=== PATIENT | male | born 1970 | race Caucasian/White ===

== ENCOUNTER 2022-12-22 20:31 | Emergency (ER) | payer BC ==
[~2022-12-22] VITALS: Ht 180.3 cm; Wt 97.5 kg
[2022-12-22] MEDS ORDERED: diphenhydrAMINE 50 MG/ML INJ (BENADRYL) IVP ONE (20:45)
[2022-12-22] MEDS ORDERED: ALPR0.25 PO (20:47)
[2022-12-22] MEDS ORDERED: METO-333 PO (20:47)
[2022-12-22] MEDS ORDERED: GABA-486 PO (20:47)
[2022-12-22] MEDS ORDERED: OXYC10TA55 PO (20:47)
--- NOTE | 2022-12-22 20:47 | Diagnostic Imaging Report ---
PROCEDURE: CT head wo r/o stroke. TECHNIQUE: Multiple contiguous axial images were obtained through the brain without the use of intravenous contrast. Auto Exposure Controls were utilized during the CT exam to meet ALARA standards for radiation dose reduction. INDICATION: Convulsion with lower extremity weakness. CT HEAD: CT images of the head were obtained. Ventricles and sulci are within normal limits for size. There is no intracranial hemorrhage identified. There is no abnormal mass effect or shift of midline structures. Mucous retention cyst or polyp is present in the right maxillary sinus. IMPRESSION: Unremarkable CT of the head. Dictated by: Dictated on workstation # [id number]
--- NOTE | 2022-12-22 20:50 | ED Neurological Problem ---
General Chief Complaint: Neuro-Stroke Like Symptoms Stated Complaint: STROKE History of Present Illness Date Seen by Provider: Dec 22, 2022 Time Seen by Provider: 20:40 Initial Comments 52-year-old male brought in by EMS. Patient was brought in for what was called as "strokelike symptoms. Patient is a TECHNICAL SALES DIRECTOR and [place] reports he had left- sided deficits and was left-sided deficit when EMS arrived but almost immediately resolved with no symptoms. Patient is now having coarse jerking more like a dystonic reaction. Patient reports he has chronic head neck pain and recently had his Narcan increased. Patient also reports he was at his brother's due to the pain he took a "edible" upon arrival patient has no strokelike symptoms. He answers all questions appropriately. Allergies and Home Medications Allergies Coded Allergies: levofloxacin (Verified Allergy, Mild, 12/22/22) Patient Home Medication List Home Medication List Reviewed: Yes Alprazolam (Xanax) 0.25 Mg Tablet, Unknown Dose PO, (Reported) Entered as Reported by: ALYSSA RUTH on 12/22/222046 Last Action: New Order Gabapentin (Gabapentin) 100 Mg Capsule, Unknown Dose PO Q8H, (Reported) Entered as Reported by: ALYSSA RUTH on 12/22/222046 Last Action: New Order Metoprolol Tartrate (Metoprolol Tartrate) 25 Mg Tablet, Unknown Dose PO BID, (Reported) Entered as Reported by: ALYSSA RUTH on 12/22/222046 Last Action: New Order Oxycodone HCl (Oxycontin) 10 Mg Tab.er.12h, 10 MG PO, (Reported) Entered as Reported by: ALYSSA RUTH on 12/22/222046 Last Action: New Order Review of Systems Review of Systems Constitutional: see HPI Eyes: No Symptoms Reported Ears, Nose, Mouth, Throat: no symptoms reported Respiratory: no symptoms reported Gastrointestinal: no symptoms reported Genitourinary: no symptoms reported Musculoskeletal: see HPI Skin: no symptoms reported Psychiatric/Neurological: No Symptoms Reported Past Smjohxd-Doegxz-Bcifaw Hx Patient Social History Tobacco Use?: Yes Substance use?: Yes Substance type: Marijuana Alcohol Use?: No Pt feels they are or have been: No Immunizations Up To Date First/Initial COVID19 Vaccinat: na Past Medical History Surgery/Hospitalization HX: anxiety, depression, headache, chronic pain, htn Physical Exam Vital Signs Vital Signs - First Documented 12/22/22 20:31 Temp 36.7 Pulse 47 Resp 16 B/P (MAP) 108/70 (83) Pulse Ox 95 O2 Delivery Room Air Capillary Refill : Less Than 3 Seconds Height, Weight, BMI Height: '" Weight: lbs. oz. kg; 29.00 BMI Method: General Appearance: other (Coarse jerky movements.) HEENT: PERRL/EOMI Respiratory: lungs clear, normal breath sounds Cardiovascular: normal peripheral pulses, regular rate, rhythm Gastrointestinal: non tender, soft Neurologic/Psychiatric: alert, oriented x 3 Motor/Sensory: other (coarse movements bilateral, dystonic type facial reaction ) Skin: normal color, warm/dry Progress/Results/Core Measures Results/Orders Lab Results Laboratory Tests Test 12/22/22 20:50 12/22/22 21:04 12/22/22 21:51 Range/Units White Blood Count 7.3 4.3-11.0 10^3/uL Red Blood Count 4.17 L 4.30-5.52 10^6/uL Hemoglobin 14.5 13.3-17.7 g/dL Hematocrit 41 40-54 % Mean Corpuscular Volume 99 80-99 fL Mean Corpuscular Hemoglobin 35 H 25-34 pg Mean Corpuscular Hemoglobin Concent 35 32-36 g/dL Red Cell Distribution Width 12.3 10.0-14.5 % Platelet Count 147 130-400 10^3/uL Mean Platelet Volume 10.8 9.0-12.2 fL Immature Granulocyte % (Auto) 0 % Neutrophils (%) (Auto) 71 42-75 % Lymphocytes (%) (Auto) 23 12-44 % Monocytes (%) (Auto) 5 0-12 % Eosinophils (%) (Auto) 1 0-10 % Basophils (%) (Auto) 1 0-10 % Neutrophils # (Auto) 5.1 1.8-7.8 10^3/uL Lymphocytes # (Auto) 1.7 1.0-4.0 10^3/uL Monocytes # (Auto) 0.3 0.0-1.0 10^3/uL Eosinophils # (Auto) 0.1 0.0-0.3 10^3/uL Basophils # (Auto) 0.1 0.0-0.1 10^3/uL Immature Granulocyte # (Auto) 0.0 0.0-0.1 10^3/uL Percent Immature Platelet Fraction 6.3 0.0-7.6 % Sodium Level 138 135-145 MMOL/L Potassium Level 3.5 L 3.6-5.0 MMOL/L Chloride Level 106 98-107 MMOL/L Carbon Dioxide Level 20 L 21-32 MMOL/L Anion Gap 12 5-14 MMOL/L Blood Urea Nitrogen 20 H 7-18 MG/DL Creatinine 0.87 0.60-1.30 MG/DL Estimat Glomerular Filtration Rate 104 BUN/Creatinine Ratio 23 Glucose Level 175 H 70-105 MG/DL Calcium Level 9.1 8.5-10.1 MG/DL Corrected Calcium 9.0 8.5-10.1 MG/DL Magnesium Level 2.1 1.6-2.4 MG/DL Total Bilirubin 0.6 0.1-1.0 MG/DL Aspartate Amino Transf (AST/SGOT) 31 5-34 U/L Alanine Aminotransferase (ALT/SGPT) 18 0-55 U/L Alkaline Phosphatase 37 L 40-136 U/L Troponin I < 0.028 <0.028 NG/ML Total Protein 6.6 6.4-8.2 GM/DL Albumin 4.1 3.2-4.5 GM/DL Serum Alcohol < 10 <10 MG/DL Smear Scan YES Influenza Type A (RT-PCR) Not Detected Not Detecte Influenza Type B (RT-PCR) Not Detected Not Detecte SARS-CoV-2 RNA (RT-PCR) Not Detected Not Detecte Urine Color YELLOW Urine Clarity CLEAR Urine pH 6.0 5-9 Urine Specific [place] >=1.030 1.016-1.022 Urine Protein NEGATIVE NEGATIVE Urine Glucose (UA) NEGATIVE NEGATIVE Urine Ketones TRACE H NEGATIVE Urine Nitrite NEGATIVE NEGATIVE Urine Bilirubin NEGATIVE NEGATIVE Urine Urobilinogen 0.2 < = 1.0 MG/DL Urine Leukocyte Esterase NEGATIVE NEGATIVE Urine RBC (Auto) NEGATIVE NEGATIVE Urine RBC NONE /HPF Urine WBC NONE /HPF Urine Squamous Epithelial Cells NONE /HPF Urine Crystals NONE /LPF Urine Bacteria TRACE /HPF Urine Casts NONE /LPF Urine Mucus SMALL H /LPF Urine Culture Indicated NO Urine Opiates Screen NEGATIVE NEGATIVE Urine Oxycodone Screen POSITIVE H NEGATIVE Urine Methadone Screen NEGATIVE NEGATIVE Urine Propoxyphene Screen NEGATIVE NEGATIVE Urine Barbiturates Screen NEGATIVE NEGATIVE Ur Tricyclic Antidepressants Screen NEGATIVE NEGATIVE Urine Phencyclidine Screen NEGATIVE NEGATIVE Urine Amphetamines Screen NEGATIVE NEGATIVE Urine Methamphetamines Screen NEGATIVE NEGATIVE Urine Benzodiazepines Screen POSITIVE H NEGATIVE Urine Cocaine Screen NEGATIVE NEGATIVE Urine Cannabinoids Screen POSITIVE H NEGATIVE My Orders Orders - SHEN SILVA L DO Ct Head Wo-R/O Stroke (12/22/22 20:32) Alcohol (12/22/22 20:33) Cbc With Automated Diff (12/22/22 20:33) Comprehensive Metabolic Panel (12/22/22 20:33) Drug Screen Stat (Urine) (12/22/22 20:33) Magnesium (12/22/22 20:33) Troponin I [place] (12/22/22 20:33) Ua Culture If Indicated (12/22/22 20:33) Influenza A And B By Pcr (12/22/22 20:33) Covid 19 Inhouse Test (12/22/22 20:33) Diphenhydramine Injection (Benadryl Inje (12/22/22 20:45) Ct Angio Head/Neck (12/22/22 21:40) Iohexol Injection (Omnipaque 350 Mg/Ml 1 (12/22/22 21:45) Received Contrast (Hold Metformin- Contr (12/22/22 21:45) Ns (Ivpb) (Sodium Chloride 0.9% Ivpb Bag (12/22/22 21:45) Medications Given in ED Current Medications Medications Dose Ordered Sig/Tacho Route Start Time Stop Time Status Last Admin Dose Admin Diphenhydramine HCl 25 mg ONCE ONCE IVP 12/22/22 20:45 12/22/22 20:46 DC 12/22/22 20:58 25 MG Iohexol 100 ml ONCE ONCE IV 12/22/22 21:45 12/22/22 21:46 DC 12/22/22 22:17 75 ML Sodium Chloride 100 ml ONCE ONCE IV 12/22/22 21:45 12/22/22 21:46 DC 12/22/22 22:17 80 ML Vital Signs/I&O 12/22/22 12/22/22 20:31 23:41 Temp 36.7 36.7 Pulse 47 74 Resp 16 16 B/P (MAP) 108/70 (83) 132/47 Pulse Ox 95 97 O2 Delivery Room Air Room Air Progress Progress Note : Progress Note Diagnostic tests were ordered reviewed and interpreted by me. He had no s ignificant acute findings on his labs. Patient CT and CTA were ordered and discussed with radiology with no acute findings. Patient's symptoms are more consistent with a dystonic or anxiety reaction. When he was resting or sleeping his symptoms disappeared the more he visit with him the more he had dystonic or tremor-like abnormal movements. I suspect this is due to an acute cannabis ingestion and intoxication. Patient has never used cannabis before and tried an edible from his brother due to chronic pain. He reports about 45 minutes after that he started experience some funny feeling and got significantly worse. Patient was offered hospitalization with further evaluation for TIA including MRI but declined because he felt it was likely due to the cannabis ingestion. Patient plans on going to hotel to stay the night while it wears off. He will return to the ER if symptoms worsen or become recurrent. Patient was stable upon discharge. Diagnostic Imaging Diagonstic Imaging: CT Plain Films/CT/US/NM/MRI: head Comments Date of Exam:12/22/22 CT HEAD WO-R/O STROKE PROCEDURE: CT head wo r/o stroke. TECHNIQUE: Multiple contiguous axial images were obtained through the brain without the use of intravenous contrast. Auto Exposure Controls were utilized during the CT exam to meet ALARA standards for radiation dose reduction. INDICATION: Convulsion with lower extremity weakness. CT HEAD: CT images of the head were obtained. Ventricles and sulci are within normal limits for size. There is no intracranial hemorrhage identified. There is no abnormal mass effect or shift of midline structures. Mucous retention cyst or polyp is present in the right maxillary sinus. IMPRESSION: Unremarkable CT of the head. Reviewed: Reviewed by Me, Discussed w/Radiologist Diagonstic Imaging: CT Plain Films/CT/US/NM/MRI: c-spine, head Comments Patient with negative CTA head and neck per radiology report and discussion with radiology Reviewed: Reviewed [place] Study, Reviewed by Me, Discussed w/Radiologist Departure Impression Primary Impression: Cannabis intoxication with perceptual disturbance Disposition: 01 HOME, SELF-CARE Condition: Stable Departure-Patient Inst. Patient Instructions: Dystonia, Marijuana Use and Addiction (DC) Add. Discharge Instructions: Follow-up with your primary care provider as needed. Return to the ER with any concerns. All discharge instructions reviewed with patient and/or family. Voiced understanding. SHEN SILVA DO Dec 22, 2022 20:50
[2022-12-22 20:57] LABS: EOSINOPHILS # (AUTO) 0.1 10^3/uL (0.0-0.3); EOSINOPHILS % (AUTO) 1 % (0-10); HEMOGLOBIN 14.5 g/dL (13.3-17.7); MONOCYTES % (AUTO) 5 % (0-12)
[2022-12-22 20:59] LABS: BASOPHILS # (AUTO) 0.1 10^3/uL (0.0-0.1); BASOPHILS % (AUTO) 1 % (0-10); HEMATOCRIT 41 % (40-54); LYMPHOCYTES # (AUTO) 1.7 10^3/uL (1.0-4.0); LYMPHOCYTES % (AUTO) 23 % (12-44); MEAN CORPUSCULAR HEMOGLOBIN 35 pg (25-34); MEAN CORPUSCULAR HGB CONC 35 g/dL (32-36); MEAN CORPUSCULAR VOLUME 99 fL (80-99); MEAN PLATELET VOLUME 10.8 fL (9.0-12.2); MONOCYTES # (AUTO) 0.3 10^3/uL (0.0-1.0); NEUTROPHILS # (AUTO) 5.1 10^3/uL (1.8-7.8); NEUTROPHILS % (AUTO) 71 % (42-75); PLATELET COUNT 147 10^3/uL (130-400); WHITE BLOOD COUNT 7.3 10^3/uL (4.3-11.0)
[2022-12-22 21:00] LABS: SMEAR SCAN COMMENT YES
[2022-12-22 21:15] LABS: ALANINE AMINOTRANSFERASE 18 U/L (0-55); ALBUMIN 4.1 GM/DL (3.2-4.5); ALKALINE PHOSPHATASE 37 U/L (40-136); BILIRUBIN,TOTAL 0.6 MG/DL (0.1-1.0); BUN/CREATININE RATIO 23; CALCIUM 9.1 MG/DL (8.5-10.1); CARBON DIOXIDE 20 MMOL/L (21-32); CHLORIDE 106 MMOL/L (98-107); CREATININE SERUM 0.87 MG/DL (0.60-1.30); GFR ESTIMATED 104; GLUCOSE 175 MG/DL (70-105); MAGNESIUM 2.1 MG/DL (1.6-2.4); POTASSIUM 3.5 MMOL/L (3.6-5.0); SODIUM 138 MMOL/L (135-145); TOTAL PROTEIN 6.6 GM/DL (6.4-8.2)
[2022-12-22] MEDS ORDERED: NS 100 ML (IVPB) BAG IV ONE (21:45)
[2022-12-22] MEDS ORDERED: HOLD METFORMIN - RECEIVED CONTRAST 20 ML VIAL IV SCH (21:45)
[2022-12-22] MEDS ORDERED: IOHEXOL 350 MG/ML 100 ML (OMNIPAQUE 350) VIAL IV ONE (21:45)
[2022-12-22 22:00] LABS: BILIRUBIN,URINE NEGATIVE (NEGATIVE); CLARITY,URINE CLEAR; COLOR,URINE YELLOW; GLUCOSE, URINE (UA) NEGATIVE (NEGATIVE); KETONES,URINE TRACE (NEGATIVE); LEUKOCYTE ESTERASE ,URINE NEGATIVE (NEGATIVE); NITRITE,URINE NEGATIVE (NEGATIVE); PROTEIN,URINE NEGATIVE (NEGATIVE)
[2022-12-22 22:08] LABS: BACTERIA,URINE TRACE /HPF
[2022-12-22 22:12] LABS: AMPHETAMINE SCREEN, URINE NEGATIVE (NEGATIVE); BARBITURATE SCREEN URINE NEGATIVE (NEGATIVE); BENZODIAZEPINES SCREEN URINE POSITIVE (NEGATIVE); CANNABINOID SCREEN, URINE POSITIVE (NEGATIVE); COCAINE SCREEN URINE NEGATIVE (NEGATIVE); METHADONE STAT NEGATIVE (NEGATIVE); OPIATE SCREEN URINE NEGATIVE (NEGATIVE); OXYCODONE STAT POSITIVE (NEGATIVE); PROPOXYPHENE STAT NEGATIVE (NEGATIVE); TRICYCLIC ANTIDEPRESSANTS SCRE NEGATIVE (NEGATIVE)
[2022-12-22 23:41] VITALS: BP 132/47
--- NOTE | 2022-12-23 08:09 | Diagnostic Imaging Report ---
PROCEDURE: CT angiography of the head and CT angiography of the neck with and without contrast. TECHNIQUE: Contiguous noncontrast images were obtained from the skull base through the vertex. After intravenous contrast administration, helical CT angiography of the neck was performed. Source data was reformatted into 3D MIP projections. Delayed post contrast acquisition was also obtained. Auto Exposure Controls were utilized during the CT exam to meet ALARA standards for radiation dose reduction. INDICATION: Tremor, stroke. COMPARISON: Noncontrast head from same day. FINDINGS: Visualized great vessels of the aortic arch are patent. The bilateral common carotid arteries are normal. No stenosis of the proximal internal carotid arteries per NASCET criteria. The cervical divisions of the internal carotid arteries are normal. Left vertebral artery is dominant. Both vertebral arteries opacify throughout the neck without high-grade stenosis or dissection. Visible lung apices are clear. No cervical lymphadenopathy. The thyroid is normal. Parotid and submandibular glands are normal in appearance. No worrisome focal osseous lesions of the cervical spine. Terminal internal carotid arteries are patent without aneurysm. M1 and M2 divisions of the middle cerebral arteries are widely patent. Anterior cerebral arteries are widely patent. No anterior communicating artery aneurysm. Basilar artery is widely patent. No posterior communicating artery aneurysm. Posterior cerebral arteries are normal. Dural venous sinuses are widely patent, no pathologic enhancement. IMPRESSION: 1. No intracranial large vessel occlusion or saccular aneurysm. 2. No arterial stenosis or occlusion within the major neck arteries. 3. Findings are in agreement with the preliminary report. Dictated by: Dictated on workstation # [id number]
== END 2022-12-22 23:41 | disposition home or self-care (01) ==
LOC: ER 20:33
DX: F12.922 Cannabis use, unspecified with intoxication with perceptual disturbance (principal); M54.2 Cervicalgia; G89.29 Other chronic pain; Z79.891 Long term (current) use of opiate analgesic; Z20.822 Contact with and (suspected) exposure to COVID-19; Z28.310 Unvaccinated for COVID-19
CPT/HCPCS: 70450; 70496; 70498; 80053; 80306; 81000; 83735; 84484; 85025; 87636; 99284; G0480; 36415; 80320